=== PATIENT | female | born 2000 | race Caucasian/White ===

== ENCOUNTER → 2019-12-03 14:46 | Outpatient (BNVA) | payer OTHER, SELFPAY | PROVIDERS: Family Provider Family Medicine; PCP Family Medicine; Visit Provider Nurse Practitioner Family | DX: Z01.89 Encounter for other specified special examinations (principal) | CPT/HCPCS: 87081; 87880 ==

== ENCOUNTER → 2020-06-14 09:31 | Outpatient (BNVA) | payer OTHER, SELFPAY | PROVIDERS: Family Provider Family Medicine; PCP Family Medicine; Visit Provider Obstetrics & Gynecology | DX: Z12.4 Encounter for screening for malignant neoplasm of cervix (principal); Z97.5 Presence of (intrauterine) contraceptive device; N92.1 Excessive and frequent menstruation with irregular cycle | CPT/HCPCS: 88175 ==

== ENCOUNTER → 2023-09-28 10:00 | Outpatient (BNVA) | payer OTHER, SELFPAY | PROVIDERS: Family Provider Family Medicine; PCP Family Medicine; Visit Provider Nurse Practitioner Women's Health | DX: Z01.419 Encounter for gynecological examination (general) (routine) without abnormal findings (principal) | CPT/HCPCS: 88175 ==

== ENCOUNTER → 2025-01-09 13:01 | Outpatient (BNVA) | payer OTHER, SELFPAY | PROVIDERS: Family Provider Family Medicine; PCP Family Medicine; Visit Provider Nurse Practitioner Women's Health | DX: N91.2 Amenorrhea, unspecified (principal) | CPT/HCPCS: 81025 ==

== ENCOUNTER → 2025-01-21 11:09 | Outpatient (BNVA) | payer OTHER, SELFPAY | PROVIDERS: Family Provider Family Medicine; PCP Family Medicine; Visit Provider Nurse Practitioner Women's Health | DX: Z36.9 Encounter for antenatal screening, unspecified (principal) | CPT/HCPCS: 76801 ==

== ENCOUNTER → 2025-01-30 13:58 | Outpatient (BNVA) | payer OTHER, SELFPAY | PROVIDERS: Family Provider Family Medicine; PCP Family Medicine; Visit Provider Nurse Practitioner Women's Health | DX: Z34.90 Encounter for supervision of normal pregnancy, unspecified, unspecified trimester (principal) | CPT/HCPCS: 84315 ==

== ENCOUNTER → 2025-02-09 11:20 | Outpatient (BNVA) | payer OTHER, SELFPAY | PROVIDERS: Family Provider Family Medicine; PCP Family Medicine; Visit Provider Nurse Practitioner Women's Health | DX: Z34.01 Encounter for supervision of normal first pregnancy, first trimester (principal) | CPT/HCPCS: 84702; 85025; 86592; 86762; 86803; 86850; 86900; 87340; 87806 ==

== ENCOUNTER → 2025-02-17 14:08 | Outpatient (BNVA) | payer OTHER, SELFPAY | PROVIDERS: Family Provider Family Medicine; PCP Family Medicine; Visit Provider Nurse Practitioner Women's Health | DX: Z34.90 Encounter for supervision of normal pregnancy, unspecified, unspecified trimester (principal); Z34.01 Encounter for supervision of normal first pregnancy, first trimester | CPT/HCPCS: 80307; 84315; 87086; 87491; 87591; 87661 ==

== ENCOUNTER → 2025-03-16 09:07 | Outpatient (BNVA) | payer OTHER, SELFPAY | PROVIDERS: Family Provider Family Medicine; PCP Family Medicine; Visit Provider Nurse Practitioner Women's Health | DX: Z34.90 Encounter for supervision of normal pregnancy, unspecified, unspecified trimester (principal) | CPT/HCPCS: 84315 ==

== ENCOUNTER → 2025-04-16 14:31 | Outpatient (BNVA) | payer OTHER, SELFPAY | PROVIDERS: Family Provider Family Medicine; PCP Family Medicine; Visit Provider Nurse Practitioner Women's Health | DX: Z36.9 Encounter for antenatal screening, unspecified (principal) | CPT/HCPCS: 76805 ==

== ENCOUNTER → 2025-04-24 12:52 | Outpatient (BNVA) | payer OTHER, SELFPAY | PROVIDERS: Family Provider Family Medicine; PCP Family Medicine; Visit Provider Nurse Practitioner Women's Health | DX: Z34.01 Encounter for supervision of normal first pregnancy, first trimester (principal) | CPT/HCPCS: 84315 ==

== ENCOUNTER → 2025-05-08 12:57 | Outpatient (BNVA) | payer OTHER, SELFPAY | PROVIDERS: Family Provider Family Medicine; PCP Family Medicine; Visit Provider Nurse Practitioner Women's Health | DX: Z34.02 Encounter for supervision of normal first pregnancy, second trimester (principal) | CPT/HCPCS: 82950; 84315 ==

== ENCOUNTER → 2025-06-08 11:04 | Outpatient (BNVA) | payer OTHER, SELFPAY | PROVIDERS: Family Provider Family Medicine; PCP Family Medicine; Visit Provider Obstetrics & Gynecology | DX: Z34.90 Encounter for supervision of normal pregnancy, unspecified, unspecified trimester (principal) | CPT/HCPCS: 84315 ==

== ENCOUNTER → 2025-06-26 11:01 | Outpatient (BNVA) | payer OTHER, SELFPAY | PROVIDERS: Family Provider Family Medicine; PCP Family Medicine; Visit Provider Obstetrics & Gynecology | DX: Z34.03 Encounter for supervision of normal first pregnancy, third trimester (principal) | CPT/HCPCS: 84315 ==

== ENCOUNTER → 2025-07-17 09:02 | Outpatient (BNVA) | payer OTHER, SELFPAY | PROVIDERS: Family Provider Family Medicine; PCP Family Medicine; Visit Provider Obstetrics & Gynecology | DX: Z34.03 Encounter for supervision of normal first pregnancy, third trimester (principal) | CPT/HCPCS: 84315 ==

== ENCOUNTER → 2025-07-31 09:02 | Outpatient (BNVA) | payer OTHER, SELFPAY | PROVIDERS: Family Provider Family Medicine; PCP Family Medicine; Visit Provider Obstetrics & Gynecology | DX: Z34.03 Encounter for supervision of normal first pregnancy, third trimester (principal) | CPT/HCPCS: 84315 ==

== ENCOUNTER → 2025-08-07 09:07 | Outpatient (BNVA) | payer OTHER, SELFPAY | PROVIDERS: Family Provider Family Medicine; PCP Family Medicine; Visit Provider Obstetrics & Gynecology | DX: Z34.03 Encounter for supervision of normal first pregnancy, third trimester (principal); Z3A.37 37 weeks gestation of pregnancy | CPT/HCPCS: 84315; 87081 ==

== ENCOUNTER → 2025-08-14 09:19 | Outpatient (BNVA) | payer OTHER, SELFPAY | PROVIDERS: Family Provider Family Medicine; PCP Family Medicine; Visit Provider Obstetrics & Gynecology | DX: Z34.03 Encounter for supervision of normal first pregnancy, third trimester (principal); Z3A.38 38 weeks gestation of pregnancy; Z53.20 Procedure and treatment not carried out because of patient's decision for unspecified reasons | CPT/HCPCS: 84315 ==

== ENCOUNTER → 2025-08-21 09:06 | Outpatient (BNVA) | payer OTHER, SELFPAY | PROVIDERS: Family Provider Family Medicine; PCP Family Medicine; Visit Provider Obstetrics & Gynecology | DX: Z34.93 Encounter for supervision of normal pregnancy, unspecified, third trimester (principal); Z3A.39 39 weeks gestation of pregnancy | CPT/HCPCS: 81000 ==

== ENCOUNTER 2025-08-28 14:58 | Outpatient (CLI) | payer OTHER, SELFPAY ==
[2025-08-28 15:09] VITALS: BMI 41.3
[2025-08-28 15:30] VITALS: BP 102/56; PULSE 65
[2025-08-28 15:44] VITALS: BP 98/55; PULSE 77
== END 2025-08-28 16:01 | disposition home or self-care (01) ==
LOC: OPOB 15:02 → OBGYN 15:02
PROVIDERS: Family Provider Family Medicine; PCP Family Medicine; Visit Provider Obstetrics & Gynecology
DX: O26.899 Other specified pregnancy related conditions, unspecified trimester (principal); Z3A.00 Weeks of gestation of pregnancy not specified; N89.8 Other specified noninflammatory disorders of vagina
CPT/HCPCS: 59025; 83986; 84112; 84315; 99211

== ENCOUNTER 2025-08-30 21:48 | Inpatient (IN) | payer OTHER, SELFPAY ==
[2025-08-30] VITALS (11 sets, daily range): BP systolic 118–145; BP diastolic 64–87; PULSE 73–100; RESP 16; TEMP 36.7; BMI 40.0
[2025-08-30 20:17] LABS: Nitrazine Paper, PH Positive
--- NOTE | 2025-08-30 21:50 | PM.OBGYHP ---
Providers/Chief Complaint Admitting Physician: Ish Martin MD Primary INVENTORY CHECKER: Gonzalo Orozco MD Primary Care Provider: Jasmeet Freed MD Chief Complaint: possible rom HPI INVENTORY CHECKER History of Present Illness Vandana Reyez is a 25 year old female G1 EDC August 28, 2025 At 40 w 2 d No complications Presents to L&D c/o fluid leakage at approximately 1400 today No uterine contractions, bleeding + active movements Present Details : 1 Para: 0 Labs Rubella: Immune RPR: Negative GBS: Negative Medications/Allergies Home Medications ?Medication ?Instructions ?Recorded ?Confirmed ?Last Taken ?Type 55-iron 29 mg-folic ac 1 1 dose pk PO DAILY 01/09/25 08/31/25 08/30/25 History mg-om3 430 mg tablet-capsule,del.rel Allergies Allergy/AdvReac Type Severity Reaction Status Date / Time No Known Allergies Allergy Verified 08/31/25 08:19 PFSH INVENTORY CHECKER PFSH: Medical History (Updated 08/28/25 @ 16:31 by Barb Guzman APN, MARQUISE) History of asthma As a child. She last had symptoms and used her inhaler at the age of 14. Denies any intubations or hospitalizations for asthma. No pertinent past medical history Denies diabetes, asthma, hypertension, seizures, DVT/PE PCP:JOHNIE Fernandes in [place]. Surgical History S/P tonsillectomy at age 17 S/P wisdom tooth extraction Family History Father Diabetes Hyperlipidemia Mother Hyperlipidemia Denies family history of Colon cancer Ovarian cancer Prostate cancer Heart disease Breast cancer Hypertension Uterine cancer Thyroid disease Stroke Social History Smoking and tobacco/nicotine status: never used tobacco/nicotine History History History 1 Term Miscarriages/Ectopic Living Children Care YISEL Calculator Estimated Delivery Date Method Current WG Current Estimate 08/28/25 LMP (Certain) 40w 4d Other Estimates 08/25/25 Ultrasound #1 41w 0d Specific Issues/Plans NONE Vitals/I&O/Wt Last Vital Signs Temp 98.5 F 08/31/25 22:50 Pulse 68 09/01/25 00:24 Resp 17 08/31/25 19:33 BP 107/60 09/01/25 00:24 Pulse Ox 97 08/31/25 22:35 O2 Del Method Room Air 08/30/25 22:04 08/31/25 08/31/25 09/01/25 14:59 22:59 06:59 Intake Total 694.750 / 694.750 565.983 / 1260.733 8.967 / 1269.700 Balance 694.750 / 694.750 565.983 / 1260.733 8.967 / 1269.700 Weight last 48 hrs Weight 248 lb Physical Exam Narrative: Weight 248 lbs; 5?6?; BMI 40 VS normal General comfortable, awake, alert Lungs: clear Cor: RRR Abd: nontender Cervix: 1 / 50 / -3 Ext: no edema External monitor: heart tracing good variability, + accelerations Urinary Catheter Management: Crook: Cath Placed During This Visit: yes Urinary Catheter Date of Insertion: 08/31/25 Urinary Catheter Time of Insertion: 22:48 Data 08/30/25 22:00 Results Labs OB ([facility]): Blood Type A Positive 08/30/25 Antibody Screen Negative 08/30/25 Hct, (36-47) 38.1 % 08/30/25 Hgb, (11.27-16.99) 12.70 g/dL 08/30/25 Rho(D) Type Rh positive 08/30/25 Plt Count, (157-399) 205 10^3/cmm 08/30/25 Hep Bs Antigen, (Nonreactive) Non-reactive 02/09/25 Hepatitis C Antibody, (Nonreactive) Non-reactive 02/09/25 Rubella IgG Antibody, (0.0-10.0) 70.9 IU/mL H 02/09/25 RPR, (Nonreactive) Nonreactive 02/09/25 HIV 1&2 Ab & HIV 1 Ag, (Non-Reactiv) Non-reactive 02/09/25 Glucose 1 Hr 50 gm, (85-140) 96 mg/dL 05/08/25 Ser , Semi-Qnt 64813.00 mIU/mL 02/09/25 HCG, Qual, (Negative) Positive H 01/09/25 Urine Opiates Screen, (Negative) Negative ng/mL 02/17/25 Ur Barbiturates Screen, (Negative) Negative ng/mL 02/17/25 Ur Phencyclidine Scrn, (Negative) Negative ng/mL 02/17/25 Ur Amphetamines Screen, (Negative) Negative ng/mL 02/17/25 U Benzodiazepines Scrn, (Negative) Negative ng/mL 02/17/25 Urine Cocaine Screen, (Negative) Negative ng/mL 02/17/25 U Marijuana (THC) Screen, (Negative) Negative ng/mL 02/17/25 Micro Urine Specimen 02/17/25 A&P Assessment and plan 1. Supervision of normal first : 40 w 2 d SROM, clear fluid Fetus reassuring Not in labor Patient does not want labor induction at this time. Wants expectant management PDMP PDMP Reviewed: Not Reviewed Attestations Medical Necessity Statement*: patient at 40 w 2 d, with spontaneous rupture of membranes Coding Level of Care Code Acute Code for Chg Fwd Diagnoses Supervision of normal first Z34.00
[2025-08-30 22:17] LABS: Hematocrit 38.1 % (36-47); Hemoglobin 12.70 g/dL (11.27-16.99); Mean Corpuscular HGB Conc 33.3 g/dL (30-55); Mean Corpuscular Hemoglobin 29.1 pg (27-33); Mean Corpuscular Volume 87.4 fl (85-98); Nucleated Red Blood Cells % 0 %; Platelet Count 205 10^3/cmm (157-399); Red Blood Count 4.36 10^6/uL (3.85-5.65); White Blood Count 13.78 10^3/uL (3.29-11.43)
[2025-08-31] VITALS (55 sets, daily range): BP systolic 99–136; BP diastolic 55–82; PULSE 64–107; RESP 16–18; TEMP 36.6–37.1; O2SAT 96–99
--- NOTE | 2025-08-31 08:05 | P.PN_ITS ---
FORESTRY AIDE Subjective 2 Subjective: Interval history: Fetus reassuring No UCs Patient at 40 w 3 d, with SROM x more than 12 hours Plan start Abx Patient agrees to starting Pitocin. Patient wants very low-dose Pitocin at this time. Labor: Station: -3 Amniotic Membrane Status: Ruptured Monitor Mode: External Contraction Pattern: Irregular Status: Category I Vitals/I&O/Wt Last Vital Signs Temp 98.5 F 08/31/25 22:50 Pulse 77 09/01/25 00:40 Resp 17 08/31/25 19:33 BP 111/65 09/01/25 00:40 Pulse Ox 97 08/31/25 22:35 O2 Del Method Room Air 08/30/25 22:04 08/31/25 08/31/25 09/01/25 14:59 22:59 06:59 Intake Total 694.750 / 694.750 565.983 / 1260.733 8.967 / 1269.700 Balance 694.750 / 694.750 565.983 / 1260.733 8.967 / 1269.700 Weight last 48 hrs Weight 248 lb Physical Exam 2 Urinary Catheter Management: Crook: Cath Placed During This Visit: yes Urinary Catheter Date of Insertion: 08/31/25 Urinary Catheter Time of Insertion: 22:48 Data 08/30/25 22:00 A&P Assessment and plan 1. Supervision of normal first : PDMP PDMP Reviewed: Not Reviewed Attestations 2 Medical Necessity Statement*: patient at 40 w 3 d, with spontaneous rupture of membranes Coding Level of Care Code Acute Code for Chg Fwd Diagnoses Supervision of normal first Z34.00
--- NOTE | 2025-08-31 08:30 | PC.NURSE ---
Pt agreed to low dose pitocin and only increase with her approval and allow her to ask for it to be decreased/turned off at her discretion. Dr Martin in room and discussed this with pt and ok with what she wants to do at this time for augmentation. Discussed antibiotic admin and pt is ok with that.
[2025-08-31] MEDS: penicillin g potassium 5,000,000 UNIT in sodium chloride 0.9% (plus) 100 ML 100 UNIT IV (08:35)
[2025-08-31] MEDS: oxytocin 30 UNIT/500 ML BAG IV (08:45)
[2025-08-31] MEDS: PENICILLIN G POTASSIUM 2,500,000 UNIT/50 ML BAG 50 UNIT IV ×3 (12:39→20:29)
[2025-08-31] MEDS: fentaNYL 50 mcg/mL INJ 2mL IVP (19:33)
--- NOTE | 2025-08-31 19:35 | P.ANESASSM_ITS ---
Pre-Anesthetic Assessment Height/Weight: Height 1.68 m Weight 112.491 kg Temp Pulse Resp BP O2 Del Method 98.8 F 93 18 136/67 Room Air 08/31/25 18:43 08/31/25 18:39 08/31/25 18:43 08/31/25 18:39 08/30/25 22:04 Epidural Familial anesthetic complications: None Was Beta Darwin taken within 24 hours: N/A Was Clonidine taken within 24 hours: N/A Last intake: 1700 solid Social No alcohol and No tobacco Exam alert, oriented x 3, clear to auscultation bilaterally and regular rate & rhythm Airway Submandibular: within normal limits (Some TMJ) Cervical ROM: within normal limits Mallampati: Class III Dentition: full History/ROS No significant history except as noted and No significant complaints Pulmonary Asthma (As a child. Doesn't use an inhaler) CV/HEM None reported None reported Hepatic None reported GI Gastroesophageal Reflux Disease (Gestational) Metabolic Morbid Obesity Musc/skel None reported Neuropsych None reported Anesthetic Plan ASA status: 2 Anesthesia: Anesthesia Evaluation, General and Regional (specify below) (Epidural) Risk of > 500 ml blood loss (7ml/kg in children): Yes, adequate IV access and fluids planned Medications/Allergies Home Medications ?Medication ?Instructions ?Recorded ?Confirmed ?Last Taken ?Type 55-iron 29 mg-folic ac 1 1 dose pk PO DAILY 0 01/09/25 08/31/25 08/30/25 History mg-om3 430 mg tablet-capsule,del.rel Allergies Allergy/AdvReac Type Severity Reaction Status Date / Time No Known Allergies Allergy Verified 08/31/25 08:19 Current Medications Generic Name Dose Route Start Last Admin Trade Name Blu PRN Reason Stop Dose Admin Dextrose/Lactated Ringer's 1,000 mls @ 125 mls/hr 08/30/25 22:15 08/31/25 18:41 Dextrose 5%-Lactated Ringers IV 120 mls/hr .Q8H ELADIO Administration Penicillin G Potassium 2,500,000 unit in 50 mls @ 50 mls/hr 08/31/25 12:30 08/31/25 18:42 IV Infused Q4H ELADIO Infusion Protocol Oxytocin 30 unit in 500 mls @ 1 mls/hr 08/31/25 08:30 08/31/25 18:43 Pitocin IV 3 milliunit/min .Q24H ELADIO 3 mls/hr Protocol Titration 1 MILLIUNIT/MIN PFSH Anesthesia Medical History (Updated 08/28/25 @ 16:31 by Barb Guzman APN, MARQUISE) History of asthma As a child. She last had symptoms and used her inhaler at the age of 14. Denies any intubations or hospitalizations for asthma. No pertinent past medical history Denies diabetes, asthma, hypertension, seizures, DVT/PE PCP:JOHNIE Fernandes in [place]. Surgical History S/P tonsillectomy at age 17 S/P wisdom tooth extraction Family History Father Diabetes Hyperlipidemia Mother Hyperlipidemia Denies family history of Colon cancer Ovarian cancer Prostate cancer Heart disease Breast cancer Hypertension Uterine cancer Thyroid disease Stroke Social History Smoking and tobacco/nicotine status: never used tobacco/nicotine Female Reproductive History : 1 Data Anesthesia 08/30/25 22:00 Short CBC 08/30/25 Range/Units 22:00 WBC 13.78 H (3.29-11.43) 10^3/uL Hgb 12.70 (11.27-16.99) g/dL Hct 38.1 (36-47) % MCV 87.4 (85-98) fl Plt Count 205 (157-399) 10^3/cmm Neut % (Auto) 74.4 % Neut # (Auto) 10.26 H (1.8-7.7) 10^3/uL Blood Bank 08/30/25 22:00 Blood Type A Positive Rho(D) Type Rh positive Antibody Screen Negative
--- NOTE | 2025-08-31 22:02 | P.ANES_ITS ---
Anesthesia Procedures Procedure/Date: 08/31/25 Epidural: Time Out Performed: Yes Consents Signed: Procedure Consent and NPO Consent Consent: requested by attending/covering physician, from patient, risks and benefits reviewed and patient agrees to proceed Lumbar Level: L3-L4 Epidural position: sitting Epidural procedure: sterile prep of area (betadine), 1% lidocaine to numb the area (3 mLs), neg for paresthesia, test dose given, 1.5% xylocaine 1:200k epi (3 mLs/ 2 mLs), placed PCEA, no systemic response, sterile dressing applied, L.U.D. no apparent complications and 0.2% Ropiavacaine @ mls/hr (13) Additional Comments: KIRSTEN 6.5cm, catheter threaded to 12cm at skin. Negative aspiration for blood or CSF. MOBILE UI DESIGNER button within reach and education given with verbalization from patient.
[2025-09-01] VITALS (67 sets, daily range): BP systolic 88–135; BP diastolic 50–78; PULSE 61–115; RESP 16–20; TEMP 36.8–37.1; O2SAT 97–98
--- NOTE | 2025-09-01 00:47 | P.PN_ITS ---
INSPECTORS AND REGULATORY OFFICERS Subjective 2 Subjective: Interval history: no c/o no pain, bleeding eating, voiding, ambulating well Labor: Station: -3 Amniotic Membrane Status: Ruptured Monitor Mode: External Contraction Pattern: Irregular Status: Category I Vitals/I&O/Wt Last Vital Signs Temp 98.5 F 08/31/25 22:50 Pulse 77 09/01/25 00:40 Resp 17 08/31/25 19:33 BP 111/65 09/01/25 00:40 Pulse Ox 97 08/31/25 22:35 O2 Del Method Room Air 08/30/25 22:04 08/31/25 08/31/25 09/01/25 14:59 22:59 06:59 Intake Total 694.750 / 694.750 565.983 / 1260.733 12.967 / 1273.700 Balance 694.750 / 694.750 565.983 / 1260.733 12.967 / 1273.700 Weight last 48 hrs Weight 248 lb Physical Exam 2 Const: COMMON NORMALS: no acute distress, patient oriented x3 and no limitations Resp: COMMON NORMALS: normal respiratory effort and clear to auscultation bilaterally AUSCULTATION: clear to auscultation bilaterally Cardio: COMMON NORMALS: regular rate and regular rhythm RATE: regular rate RHYTHM: regular rhythm GI: COMMON NORMALS: Normal to inspection, nondistended, normoactive bowel sounds present and non-tender Neuro: COMMON NORMALS: patient oriented x3 Urinary Catheter Management: Crook: Cath Placed During This Visit: yes Urinary Catheter Date of Insertion: 08/31/25 Urinary Catheter Time of Insertion: 22:48 Data 09/02/25 02:45 A&P Assessment and plan 1. Vaginal delivery: PDMP PDMP Reviewed: Not Reviewed Attestations 2 Medical Necessity Statement*: patient s/p vaginal delivery, for care. Coding Level of Care Code Acute Code for Chg Fwd Diagnoses Vaginal delivery O80
[2025-09-01] MEDS: PENICILLIN G POTASSIUM 2,500,000 UNIT/50 ML BAG 50 UNIT IV ×4 (01:29→12:48)
[2025-09-01] MEDS: ROPivacaine premix 200 MG/100 ML PREMIX 10 MG EPIDURAL ×2 (03:55→10:47)
--- NOTE | 2025-09-01 07:00 | PC.NURSE ---
Pt sitting in throne and leaning forward with ctx at this time. Discussed with pt different position changes to help with baby position/descent. Pt declines position change at this time. Pt continues to refuse IV fluids/pitocin at this time. Dr Martin aware, will continue to allow pt to labor down.
--- NOTE | 2025-09-01 13:15 | PM.DELIVERY ---
Delivery Note: Date of delivery: September 01, 2025 Pre-delivery diagnoses: 40 w 2 d spontaneous rupture of membranes pitocin induction of labor Post-delivery diagnoses: 40 w 2 d spontaneous rupture of membranes pitocin induction of labor vaginal delivery repair of third-degree perineal laceration Procedure: pitocin induction of labor vaginal delivery repair of third-degree perineal laceration Op report anesthesia: Epidural Delivering Physician: Ish Martin MD Estimated blood loss (mL): 300 Findings: , vigorous male Cord gases obtained Normal placenta and cord No episiotomy Third-degree perineal laceration repaired in layers EBL: 300 cc No complications Pre-Delivery Course: normal labor course fetus reassuring throughout Delivery: vaginal Post-Delivery Status: good History History History 1 Term Miscarriages/Ectopic Living Children A&P Assessment and plan 1. Vaginal delivery: PDMP PDMP Reviewed: Not Reviewed Coding Level of Care Code Acute Code for Chg Fwd Diagnoses Vaginal delivery O80
[2025-09-01] MEDS: benzocaine-menthol 78 gm Canister 1 SPRAY TOPICAL (14:43)
--- NOTE | 2025-09-01 15:56 | PC.NURSE ---
Pt up to bathroom with stand by assist. Walked to toilet and voided large amount. Nicole care demonstrated and performed by pt. Pt then stood to change gown and underwear and got very dizzy and pale. Pt sat back onto toilet and RN called for assistance. Before wheelchair was obtained pt passed out, unarousable to verbal or physical stimuli. Pt into wheelchair and moved back to labor bed. Pt then awoke, blood pressure 108/53 and HR 86. IV fluid bolus started, crackers and sprite provided. Fundus firm, bleeding scant. Pt states feels much better, has more color, and VSS. Pt instructed not to get up without nurse assistance next time she needs to get up to void, understanding voiced. Dr Martin notified of occurrence, no further orders.
--- NOTE | 2025-09-01 17:58 | PC.NURSE ---
Pt up to bathroom, void well. Nicole care performed by pt. Pad changed. Pt moved to OB8 via wheel chair. Oriented to room/call light and proud parent pack.
[2025-09-02 02:49] LABS: Hematocrit 30.4 % (36-47); Hemoglobin 9.90 g/dL (11.27-16.99); Mean Corpuscular HGB Conc 32.6 g/dL (30-55); Mean Corpuscular Hemoglobin 28.6 pg (27-33); Mean Corpuscular Volume 87.9 fl (85-98); Platelet Count 171 10^3/cmm (157-399); Red Blood Count 3.46 10^6/uL (3.85-5.65); White Blood Count 17.10 10^3/uL (3.29-11.43)
[2025-09-02] MEDS: PRENATAL VIT NO.130/IRON/FOLIC 1 EACH TABLET PO (05:39)
[2025-09-02 05:40] VITALS: BP 89/58; PULSE 80; RESP 16; O2SAT 98
[2025-09-02 07:45] VITALS: BP 107/56; PULSE 68; RESP 16; TEMP 36.8
--- NOTE | 2025-09-02 12:50 | PM.OBGYPN ---
TE[employer] CONSULTANT Subjective Subjective: Interval history: no c/o no headaches, dizziness, nausea, abdominal pain, bleeding normal lochia mild perineal pain, relieved with pain meds eating, voiding, ambulating well Labor: Station: +1 Amniotic Membrane Status: Ruptured Monitor Mode: Palpation Contraction Pattern: Regular Status: Category I Vitals/I&O/Wt Last Vital Signs Temp 98.2 F 09/02/25 16:00 Pulse 71 09/02/25 16:00 Resp 16 09/02/25 16:00 BP 102/67 09/02/25 16:00 Pulse Ox 97 09/02/25 16:00 O2 Del Method Room Air 09/02/25 16:00 Physical Exam Narrative: afebrile, VS normal comfortable, awake, alert Abd: soft, nontender. fundus firm Ext: no edema; nontender Urinary Catheter Management: Crook: Cath Placed During This Visit: yes, but has since been removed by the nurse Reason for Continuing Indwelling Catheter: Decision to DC Catheter Urinary Catheter Date of Insertion: 08/31/25 Urinary Catheter Time of Insertion: 22:48 Date Urinary Catheter Removed: 09/01/25 Time Urinary Catheter Discontinued: 05:18 Data 09/02/25 02:45 A&P Assessment and plan 1. Vaginal delivery: PPD #1 , repair of third-degree perineal laceration doing well normal course continue care PDMP PDMP Reviewed: Not Reviewed Attestations Medical Necessity Statement*: patient s/p vaginal delivery Coding Level of Care Code Acute Code for Chg Fwd Diagnoses Vaginal delivery O80
--- NOTE | 2025-09-02 13:25 | ANE.PACU2 ---
Inpatient post-anesthesia follow up: Airway intact: Yes Vital signs: Temperature 98.1 F Pulse Rate 90 Respiratory Rate 16 Blood Pressure 113/68 Pulse Oximetry 98 Oxygen Delivery Me thod Room Air Oxygen Flow Rate Fraction of Inspir ed Oxygen Hydration adequate: Yes Nausea and vomiting: No Pain level: 2 Mental status: Baseline Epidural Start/End: Epidural Start Date: 08/31/25 Epidural Start Time: 21:40 Epidural End Date: 08/25/25 Epidural End Time: 13:15
[2025-09-02 16:00] VITALS: BP 102/67; PULSE 71; RESP 16; TEMP 36.8; O2SAT 97
[2025-09-02 22:15] VITALS: BP 112/65; PULSE 84; RESP 16; TEMP 36.7; O2SAT 98
[2025-09-03 04:50] VITALS: BP 105/62; PULSE 69; RESP 15; TEMP 36.7; O2SAT 97
[2025-09-03] MEDS: PRENATAL VIT NO.130/IRON/FOLIC 1 EACH TABLET PO (04:57)
[2025-09-03 10:00] VITALS: BP 113/68; PULSE 90; RESP 16; TEMP 36.7; O2SAT 98
--- NOTE | 2025-09-03 14:10 | PM.OBGYDC ---
Discharge Providers TELEGRAPH OFFICE ROUTE AIDE Date of Admission: 08/30/25 21:48 Date of Discharge: 09/03/25 Attending Provider at Admission: Ish Martin MD Attending Provider at Discharge: Ish Martin MD Consults: none Primary Care Provider: Jasmeet Freed MD Diagnoses at Discharge Discharge Diagnosis 1. Vaginal delivery: Details from hospital stay: 25 y.o. G1 at 40 w 2 d admitted with spontaneous rupture of membranes patient progressed slowly, required labor augmentation fetus was reassuring throughout patient delivered vaginally without any complications had repair of third-degree perineal laceration patient did well and was discharged to home on the second day Reason for Visit Reason for Visit: possible rom Brief History: 25 y.o. G1 at 40 w 2 d admitted with spontaneous rupture of membranes Hospital Course Hospital Course 25 y.o. G1 at 40 w 2 d admitted with spontaneous rupture of membranes patient progressed slowly, required labor augmentation fetus was reassuring throughout patient delivered vaginally without any complications had repair of third-degree perineal laceration patient did well and was discharged to home on the second day Information Peripartum Data: Delivery Method: Vaginal Laceration description: Perineal - 3rd Degree Episiotomy description: None complications: none Physical Exam Narrative: afebrile, VS normal comfortable, awake, alert Lungs: clear Cor: RRR Abd: soft, nontender. fundus firm Ext: no edema; nontender Urinary Catheter Management: Crook: Cath Placed During This Visit: yes, but has since been removed by the nurse Reason for Continuing Indwelling Catheter: Decision to DC Catheter Urinary Catheter Date of Insertion: 08/31/25 Urinary Catheter Time of Insertion: 22:48 Date Urinary Catheter Removed: 09/01/25 Time Urinary Catheter Discontinued: 05:18 History History History 1 Term Miscarriages/Ectopic Living Children Discharge Data Studies Completed and Pending Laboratory Results WBC 17.10 10^3/uL (3.29-11.43) H 09/02/25 02:45 RBC 3.46 10^6/uL (3.85-5.65) L 09/02/25 02:45 Hgb 9.90 g/dL (11.27-16.99) L 09/02/25 02:45 Hct 30.4 % (36-47) L 09/02/25 02:45 MCV 87.9 fl (85-98) 11/05/25 02:45 MCH 28.6 pg (27-33) 09/02/25 02:45 MCHC 32.6 g/dL (30-55) 09/02/25 02:45 RDW 14.6 % (12.1-15.1) 09/02/25 02:45 Plt Count 171 10^3/cmm (157-399) 09/02/25 02:45 MPV 12.2 fL (7.4-10.4) H 09/02/25 02:45 Neut % (Auto) 74.4 % 08/30/25 22:00 Lymph % (Auto) 17.3 % 08/30/25 22:00 Grady % (Auto) 6.9 % 08/30/25 22:00 Eos % (Auto) 0.5 % 08/30/25 22:00 Baso % (Auto) 0.3 % 08/30/25 22:00 Neut # (Auto) 10.26 10^3/uL (1.8-7.7) H 08/30/25 22:00 Lymph # (Auto) 2.4 10^3/uL (0.8-4.8) 08/30/25 22:00 Grady # (Auto) 1.0 10^3/uL (0.2-0.9) H 08/30/25 22:00 Eos # (Auto) 0.1 10^3/uL (0.0-0.8) 08/30/25 22:00 Baso # (Auto) 0.0 10^3/uL (0.0-0.1) 08/30/25 22:00 Nucleated RBC % (auto) 0 % 08/30/25 22:00 Nucleated RBCs # 0.0 /100WBC 08/30/25 22:00 Insulin-like GF I Positive 08/30/25 19:59 Fluid pH (paper) Positive H 08/30/25 19:59 Blood Type A Positive 08/30/25 22:00 Rho(D) Type Rh positive 08/30/25 22:00 Antibody Screen Negative 08/30/25 22:00 Procedures Performed labor augmentation vaginal delivery repair of third-degree perineal laceration Vitals Last Vital Signs Temp 98.1 F 09/03/25 10:00 Pulse 90 09/03/25 10:00 Resp 16 09/03/25 10:00 BP 113/68 09/03/25 10:00 Pulse Ox 98 09/03/25 10:00 O2 Del Method Room Air 09/03/25 04:50 Results Labs OB ([facility]): Blood Type A Positive 08/30/25 Antibody Screen Negative 08/30/25 Hct, (36-47) 30.4 % L 09/02/25 Hgb, (11.27-16.99) 9.90 g/dL L 09/02/25 Rho(D) Type Rh positive 08/30/25 Plt Count, (157-399) 171 10^3/cmm 09/02/25 Hep Bs Antigen, (Nonreactive) Non-reactive 02/09/25 Hepatitis C Antibody, (Nonreactive) Non-reactive 02/09/25 Rubella IgG Antibody, (0.0-10.0) 70.9 IU/mL H 02/09/25 RPR, (Nonreactive) Nonreactive 02/09/25 HIV 1&2 Ab & HIV 1 Ag, (Non-Reactiv) Non-reactive 02/09/25 Glucose 1 Hr 50 gm, (85-140) 96 mg/dL 05/08/25 Ser , Semi-Qnt 96562.00 mIU/mL 02/09/25 HCG, Qual, (Negative) Positive H 01/09/25 Urine Opiates Screen, (Negative) Negative ng/mL 02/17/25 Ur Barbiturates Screen, (Negative) Negative ng/mL 02/17/25 Ur Phencyclidine Scrn, (Negative) Negative ng/mL 02/17/25 Ur Amphetamines Screen, (Negative) Negative ng/mL 02/17/25 U Benzodiazepines Scrn, (Negative) Negative ng/mL 02/17/25 Urine Cocaine Screen, (Negative) Negative ng/mL 02/17/25 U Marijuana (THC) Screen, (Negative) Negative ng/mL 02/17/25 Micro Urine Specimen 02/17/25 Discharge Plan Discharge Patient Disposition: Home Condition: Stable Prescriptions: Continued vit [id number] 29-1-430 mg combo pack,tablet and cap,DR 1 dose pk PO DAILY Discharge Order = DC NOW: Discharge Order (Routine); Ordered 09/03/25 Ordered By: Ish Martin Referrals: Barb Guzman APN, MARQUISE [Nurse Practitioner, TELEGRAPH OFFICE ROUTE AIDE] - 10/19/25 1:45 pm Discharge Diet: Usual diet Discharge Activity: Increase activity as tolerated Patient Instructions: Depression (DC), Opioid Safety (DC), Preeclampsia and Eclampsia After Delivery (GEN), Hemorrhage (DC), OB Discharge Report, OB Food/Drug Interaction Guide, Opioid Safety, OB Home Care, OB Vaginal Deliveries - [facility], Patient Portal & [place] Instructions, Abnormal Bleeding Discharge Attestations TELEGRAPH OFFICE ROUTE AIDE Time Spent in Discharge Care*: less than 30 min Coding Level of Care Code Acute Code for Chg Fwd Diagnoses Vaginal delivery O80
== END 2025-09-03 10:02 | disposition home or self-care (01) | DRG 768 ==
LOC: OPOB 21:48 → OBGYN 21:48
PROVIDERS: Admitting Provider Obstetrics & Gynecology; Family Provider Family Medicine; PCP Family Medicine; Visit Provider Obstetrics & Gynecology
DX: O48.0 Post-term pregnancy (principal); Z37.0 Single live birth; O70.20 Third degree perineal laceration during delivery, unspecified; Z3A.40 40 weeks gestation of pregnancy; O99.62 Diseases of the digestive system complicating childbirth; K21.9 Gastro-esophageal reflux disease without esophagitis
CPT/HCPCS: 36415; 51702; 59025; 59409; 83986; 84112; 85025; 85027; 86850; 86900; 96374; 99211; J2540; J2590; J2795; J3010; J7030; J7121; J9999